=== PATIENT | male | born 1960 | race Caucasian/White ===

== ENCOUNTER 2020-08-09 09:17 | Observation (INO) ==
[~2020-08-09 09:17] MED LIST: Buffered Lidocaine 1% SYRIN 1 ml INTRADERM ONE; Lactated Ringers 1000 ml BAG 1,000 ML IV SCH
[2020-08-09] MEDS ORDERED: Naloxone 0.4 mg VIAL 0.4 mg/ml 1 ml VIAL IV PRN (09:21)
[2020-08-09] MEDS ORDERED: DiMENhydriNATE IV 50 mg/ml 1 ml VIAL IV PUSH PRN (09:21)
[2020-08-09] MEDS ORDERED: Ondansetron 4 mg VIAL 2 MG/ML 2 ml VIAL IV PRN ×2 (09:21→15:17)
[2020-08-09] MEDS ORDERED: ceFAZolin 2 GM PREMIX 2 GM/50 ML BAG ONE (09:57)
[2020-08-09] MEDS ORDERED: ceFAZolin 1 GM ADVAN 1 GM ADDV.VIAL IVPB ONE (09:57)
[2020-08-09] MEDS ORDERED: fentaNYL 100 mcg/2 ml 50 MCG/ML VIAL ONE ×5 (10:17→15:40)
[2020-08-09] MEDS ORDERED: Midazolam 2 mg/2 ml VIAL 1 mg/ml 2 ml VIAL (2 mg) ONE ×3 (10:18→12:53)
[2020-08-09] MEDS ORDERED: Ketamine HCL 50 mg/ml 10 ml VIAL (500 MG) ONE (10:25)
[2020-08-09] MEDS ORDERED: Lidocaine 2% PF 5 ML VIAL ONE (10:26)
[2020-08-09] MEDS ORDERED: ROPIVACAINE 5 MG/ML 30 ML BTL (0.5%) ONE ×2 (10:58→12:56)
[2020-08-09] MEDS ORDERED: Dexamethasone IV 4 MG/ML VIAL 1 ml VIAL ONE ×2 (11:12→13:07)
[2020-08-09] MEDS ORDERED: Dexmedetomidine 200 mcg/2 ml 2 ml VIAL (200 mcg) ONE (11:33)
[2020-08-09] MEDS ORDERED: Propofol 10 mg/ml 100 ML BTL 100 ML ONE (11:36)
[2020-08-09] MEDS ORDERED: Ondansetron 4 mg VIAL 2 MG/ML 2 ml VIAL ONE (13:07)
[2020-08-09] MEDS ORDERED: Glycopyrrolate IV 0.2 MG/ML 1 ML VIAL ONE ×2 (13:32→13:53)
[2020-08-09] MEDS ORDERED: diPHENhydraMINE IV 50 MG/ML 1 ml VIAL (BENADRYL) IV PRN (15:17)
[2020-08-09] MEDS ORDERED: diPHENhydraMINE 25 mg TAB PO PRN (15:17)
[2020-08-09] MEDS ORDERED: Lactulose 30 ml UDC PO PRN (15:17)
[2020-08-09] MEDS ORDERED: Morphine 2 MG/ML SYRINGE IV PRN (15:17)
[2020-08-09] MEDS ORDERED: Magnesium Hydroxide LIQ 30 ML UDC PO PRN (15:17)
[2020-08-09] MEDS ORDERED: Ondansetron ODT 4 mg TAB 4 MG TAB PO PRN (15:17)
[2020-08-09] MEDS: fentaNYL 100 mcg/2 ml 50 MCG/ML VIAL IV PRN ×4 (15:28→15:57)
[2020-08-09] MEDS ORDERED: oxyCODONE/Acetamin 5/325 mg TAB ONE (15:40)
[2020-08-09] MEDS: oxyCODONE/Acetamin 5/325 mg TAB PO PRN (15:47)
[2020-08-09] MEDS: Lactated Ringers 1000 ml BAG 1,000 ML IV SCH (16:15)
[2020-08-09] MEDS ORDERED: CMC:Simvastatin 10 mg TAB (NF) PO SCH (18:00)
[2020-08-09] MEDS: ceFAZolin 1 GM ADVAN 1 GM in NS 0.9% 50 ML 50 ML IVPB SCH (20:05)
[2020-08-09] MEDS: Magnesium Hydroxide LIQ 30 ML UDC PO SCH (20:14)
[2020-08-10] MEDS: Lactated Ringers 1000 ml BAG 1,000 ML IV SCH (03:09)
[2020-08-10 05:06] LABS: Hematocrit 43 % (42-52); Hemoglobin 14.2 g/dL (14.0-18.0); Mean Platelet Volume 8.1 fL (7.4-10.4); Platelet Count 331 10^3/uL (150-450)
[2020-08-10] MEDS: ceFAZolin 1 GM ADVAN 1 GM in NS 0.9% 50 ML 50 ML IVPB SCH ×2 (05:22→12:24)
[2020-08-10 05:30] LABS: Calcium 8.6 mg/dL (8.6-10.3); EGFR African American 113.2 (>60); EGFR Non-African American 93.5 (>60); Potassium 4.3 mmol/L (3.5-5.0)
[2020-08-10] MEDS: Magnesium Hydroxide LIQ 30 ML UDC PO SCH (08:55)
[2020-08-10] MEDS ORDERED: ASPIRIN PO SCH (09:00)
[2020-08-10] MEDS ORDERED: Vitamin THERAPEUTIC TAB PO SCH (09:00)
[2020-08-10] MEDS ORDERED: DIPYRIDAMOLE PO SCH (09:00)
[2020-08-10 11:15] VITALS: BP 137/72
[2020-08-10] MEDS: oxyCODONE/Acetamin 5/325 mg TAB PO PRN (14:14)
== END 2020-08-10 14:40 | disposition home or self-care (01) ==
LOC: SSU 09:17 → OR 09:17 → EDSTATUS 12:00
PROVIDERS: ADMIT Orthopaedic Surgery Adult Reconstructive Orthopaedic Surgery; ATTEND Orthopaedic Surgery Adult Reconstructive Orthopaedic Surgery

== ENCOUNTER 2021-01-10 09:31 | Inpatient (IN) ==
[~2021-01-10 09:31] MED LIST changes: +Ropivacaine 5 MG/ML 20 ML VIAL 0.5% (100 MG) ONE; +ceFAZolin 2 GM in NS PREMIX 0 GM/0 ML BAG IVPB ONE
[2021-01-10] MEDS ORDERED: ceFAZolin 2 GM in NS PREMIX 2 GM/100 ML BAG IVPB ONE (09:42)
[2021-01-10] MEDS ORDERED: Lidocaine 1% MPF 5 ML VIAL ONE (10:06)
[2021-01-10] MEDS ORDERED: Propofol 0 MG/0 ML BTL ONE (10:09)
[2021-01-10] MEDS ORDERED: Midazolam 2 mg/2 ml VIAL 1 mg/ml 2 ml VIAL (2 mg) ONE ×2 (10:09→10:22)
[2021-01-10] MEDS ORDERED: Bupivacaine 0.5% SDV PF 30ML VIAL ONE (10:26)
[2021-01-10 11:03] LABS: INR 1.17 (0.86-1.15)
[2021-01-10] MEDS ORDERED: fentaNYL 250 mcg/5 ml 50 MCG/ML 5 ml VIAL (250 MCG) ONE (11:14)
[2021-01-10] MEDS ORDERED: Ondansetron 4 mg VIAL 2 MG/ML 2 ml VIAL ONE (11:14)
[2021-01-10] MEDS ORDERED: Lidocaine 2% PF 5 ML VIAL ONE (11:14)
[2021-01-10] MEDS ORDERED: Rocuronium 50 mg VIAL 10 mg/ml 5 ml VIAL (50 mg) ONE (11:14)
[2021-01-10] MEDS ORDERED: Propofol 10 MG/ML 20 ML BTL ONE (11:14)
[2021-01-10] MEDS ORDERED: Dexamethasone IV 4 MG/ML VIAL 1 ml VIAL ONE (11:14)
[2021-01-10] MEDS ORDERED: HYDROmorphone 1 MG/1 ML SYRINGE ONE ×3 (11:43→14:43)
[2021-01-10] MEDS ORDERED: DiMENhydriNATE IV 50 mg/ml 1 ml VIAL IV PUSH PRN (11:50)
[2021-01-10] MEDS ORDERED: diPHENhydraMINE IV 50 MG/ML 1 ml VIAL (BENADRYL) IV PRN ×2 (11:50→12:45)
[2021-01-10] MEDS ORDERED: Naloxone 0.4 mg VIAL 0.4 mg/ml 1 ml VIAL IV PRN (11:50)
[2021-01-10] MEDS ORDERED: Ondansetron 4 mg VIAL 2 MG/ML 2 ml VIAL IV PRN (12:45)
[2021-01-10] MEDS ORDERED: Ondansetron ODT 4 mg TAB 4 MG TAB PO PRN (12:45)
[2021-01-10] MEDS ORDERED: Magnesium Hydroxide LIQ 30 ML UDC PO PRN (12:45)
[2021-01-10] MEDS ORDERED: Lactulose 30 ml UDC PO PRN (12:45)
[2021-01-10] MEDS ORDERED: Morphine 2 MG/ML SYRINGE IV PRN (12:45)
[2021-01-10] MEDS ORDERED: diPHENhydraMINE 25 mg TAB PO PRN (12:45)
[2021-01-10] MEDS ORDERED: ceFAZolin 1 GM ADVAN 1 GM in NS 0.9% 50 ML 50 ML IVPB SCH (13:00)
[2021-01-10] MEDS: HYDROmorphone 1 MG/1 ML SYRINGE IV PRN ×5 (14:43→15:15)
[2021-01-10] MEDS: Lactated Ringers 1000 ml BAG 1,000 ML IV SCH (16:47)
[2021-01-10] MEDS: ceFAZolin 1 GM ADVAN 1 GM in NS 0.9% 50 ML 50 ML IVPB SCH (19:42)
[2021-01-10] MEDS: Magnesium Hydroxide LIQ 30 ML UDC PO SCH (19:42)
[2021-01-11] MEDS: Lactated Ringers 1000 ml BAG 1,000 ML IV SCH (03:13)
[2021-01-11] MEDS: ceFAZolin 1 GM ADVAN 1 GM in NS 0.9% 50 ML 50 ML IVPB SCH ×2 (03:25→11:56)
[2021-01-11 07:10] LABS: Hematocrit 40 % (42-52); Hemoglobin 13.4 g/dL (14.0-18.0); Mean Platelet Volume 8.6 fL (7.4-10.4); Platelet Count 227 10^3/uL (150-450)
[2021-01-11 07:27] LABS: Calcium 8.6 mg/dL (8.6-10.3); Potassium 4.5 mmol/L (3.5-5.0)
[2021-01-11] MEDS: Magnesium Hydroxide LIQ 30 ML UDC PO SCH (07:39)
[2021-01-11] MEDS ORDERED: Vitamin THERAPEUTIC TAB PO SCH (09:00)
[2021-01-11] MEDS ORDERED: Flu vaccine *QUAD* 2021-22* 0.5 ML SYRINGE IM ONE (09:00)
[2021-01-11 15:11] VITALS: BP 103/64
== END 2021-01-11 15:20 | disposition home or self-care (01) | DRG 302 ==
LOC: AA 09:31 → SSU 16:59
PROVIDERS: ADMIT Orthopaedic Surgery Adult Reconstructive Orthopaedic Surgery; ATTEND Orthopaedic Surgery Adult Reconstructive Orthopaedic Surgery